=== PATIENT | female | born 1945 | race Caucasian/White ===

== ENCOUNTER 2022-05-15 13:33 | Outpatient (REF) | payer MEDICARE, SELFPAY ==
--- NOTE | ~2022-05-15 | MR_ITS ---
EXAMINATION: MR BRAIN WITHOUT AND WITH CONTRAST CLINICAL INFORMATION: 77-year-old with right-sided trigeminal neuralgia with ear pain. Evaluate for possible posterior fossa lesion. COMPARISON: None TECHNIQUE: Multiplanar, multisequence MRI of the brain and trigeminal nerve pathways was obtained before and after the intravenous administration of 7.5 mL Gadavist. FINDINGS: BRAIN VOLUME: Within normal limits within the limitations of qualitative assessment. STRUCTURAL: Partially empty sella, normal variant. BRAIN AND MENINGES: DWI sequence demonstrates no restricted diffusion to suggest acute or subacute cerebral ischemia. There is a nonenhancing 1.6 cm crescent-shaped confluent zone of deep periventricular T2 hyperintensity in the left frontal region which could reflect a zone of chronic ischemic microangiopathy. Scattered small nonenhancing T2 hyperintensities seen in the left lopes radiata, left parietal subcortical white matter and right peritrigonal region also likely reflecting tiny zones of chronic ischemic microangiopathy in a patient of this age. The remainder of the brain parenchyma is normal in morphology and signal intensity. Thin section high-resolution T2-weighted imaging demonstrates a normal appearance to the cisternal and cavernous portions of the trigeminal nerves bilaterally, with no evidence for mass lesion or abnormal enhancement. The trigeminal root exit zones are within normal limits. No brainstem lesions are seen. Meckel's caves show no definite abnormal enhancement and there is a normal appearance to the foramen ovale bilaterally and trigeminal fat pads. The cavernous sinuses enhance normally. Basal cisterns demonstrate no mass or abnormal enhancement. The IACs are within normal limits in appearance bilaterally. The visualized orbital fissures, pterygopalatine fossa, inferior orbital grooves, premaxillary fat pads and mandible are within normal limits. VENTRICLES AND SUBARACHNOID SPACES: The ventricular system and subarachnoid spaces are within normal range; there is no hydrocephalus. ORBITAL STRUCTURES: The visualized orbital structures are grossly unremarkable within the limitations of the study. Pituitary gland appears normal. VASCULAR: Signal voids are noted in the visualized major intracranial vessels. OSSEOUS STRUCTURES, SINUSES/MASTOIDS, EXTRACRANIAL SOFT TISSUES: The visualized upper neck soft tissues demonstrate an unremarkable appearance. There are discogenic degenerative changes and spondylosis at C3-C4, C4-C5 and C5-C6 with posterior disc osteophyte complex at C5-C6 possibly impinging on the spinal cord at this level with moderate spinal canal stenosis suspected. MR/MR head/brain wo/w con IMPRESSION: 1. Unremarkable appearance to the trigeminal nerves as described above. No mass lesions or abnormal enhancement and no evidence for vascular impingement. 2. Scattered minimal chronic ischemic microangiopathy in the white matter of both cerebral hemispheres suspected. 3. No acute intracranial process. No pathologic intracranial enhancement, space-occupying process or mass effect. 4. Upper cervical degenerative changes as discussed above with possible spinal cord impingement at C5-C6.
== END 2022-05-15 13:34 | disposition home or self-care (01) ==
LOC: HO.MRI 13:33
PROVIDERS: PCP Internal Medicine; Visit Provider Psychiatry & Neurology Neurology
DX: R51.9 Headache, unspecified (principal)
CPT/HCPCS: 70553; A9585